=== PATIENT | male | born 1995 | race Caucasian/White ===

== ENCOUNTER → 2021-07-27 09:56 | Outpatient (CLI) | payer BC, SELFPAY | PROVIDERS: Visit Provider Nurse Practitioner | DX: Z20.822 Contact with and (suspected) exposure to COVID-19 (principal) | CPT/HCPCS: C9803; U0003; U0005 ==

== ENCOUNTER → 2021-12-27 13:51 | Outpatient (CLI) | payer BC, SELFPAY | PROVIDERS: Visit Provider Urology | DX: Z01.812 Encounter for preprocedural laboratory examination (principal); Z20.822 Contact with and (suspected) exposure to COVID-19; Z30.2 Encounter for sterilization | CPT/HCPCS: C9803; U0003; U0005 ==

== ENCOUNTER 2021-12-30 07:40 | Day surgery (SDC) | payer BC, SELFPAY ==
[2021-12-30 08:07] VITALS: BP 132/69; PULSE 68; RESP 17; TEMP 36.9; O2SAT 99; BMI 35.6
--- NOTE | 2021-12-30 08:52 | P.PN_ITS ---
[facility] Anesthesia Checklist - Structural Data Admitted From: Home Planned Operative Procedure/s: vasectomy Consent for Planned Operative Procedure(s) Verified: Yes - Airway Assessment C-Spine Mobility Assessed: Yes TMJ Mobility Assessed: Yes Dentition: Good Dentition - Neurological Assessment Level of Consciousness: Awake, Alert, Appropriate - Anesthesia Plan Anesthesia Risk discussed: Yes Anesthesia Plan: Verified ASA Class: I Anesthesia Type: MAC [facility] History I have reviewed the patient's past medical history: Yes Medical History: Denies:: Cancer, Diabetes Mellitus Type 1, Diabetes Mellitus Type 2, MRSA, Seizures *Have you ever received a pneumonia vaccine?: No *Have you received a flu vaccine this season?: No Anesthesia experience/problems:: none Other Surgeries: Yes: No Previous Surgery Amputation: No Fractures: No - *Social History Smoking Status: Never smoker Alcohol Intake: current Alcohol Intake Frequency:: holidays/special occasions only Substance Use Type: denies use *Occupational Status:: employed Housing: house Household Members: spouse, children *Travel in the last 8 weeks: None Family Hx:: Heart Attack, Cancer
[2021-12-30 09:58] VITALS: BP 145/95; PULSE 86; RESP 18; TEMP 36.8; O2SAT 96
[2021-12-30 10:08] VITALS: BP 150/92; PULSE 85; RESP 18; O2SAT 98
[2021-12-30 10:18] VITALS: BP 151/92; PULSE 81; RESP 18; O2SAT 98
[2021-12-30 10:27] VITALS: BP 140/93; PULSE 75; RESP 18; O2SAT 100
--- NOTE | 2021-12-30 11:59 | HMH.OPNOTE ---
Date of procedure: 12/30/21 Pre-op Diagnosis:: Sterilization Post-op Diagnosis:: Sterilization Procedure performed:: Vasectomy Surgeon:: Hansel Sung MD SALES TEAM MANAGER:: Other (meche) Anesthesia: MAC Estimated blood loss (mL): 0 Clinical Note:: 26-year-old white male previously seen for vasectomy consultation presents for the procedure today. Operative findings:: Normal scrotal and testicular examination. Both vasa are easily palpable. Operative note:: Patient taken to the operating room after informed consent was obtained. Monitored anesthesia care was administered and preoperative antibiotic was administered. He was prepped and draped in the standard surgical fashion. Scrotal and testicular examination were within normal limits. The left vas was identified and brought up to the midline raphae. Local anesthetic was placed under the skin in the midline raphae and around the left vas. Incision was then made in the midline raphae for about 2 cm and a tenaculum was used to grasp the left vas and it was brought up through the incision. The basal sheath was then incised and the vas proper was dissected from its surrounding adventitial and vascular tissue. 1 clip was placed distally and 2 clips proximally. A 1 cm segment was excised and the vasa lumens were cauterized. Hemostasis achieved and the left vas dropped back into the hemiscrotum. An identical procedure was performed on the right side. The right vas was brought up through the same midline incision. The vasal sheath incised and the vas proper dissected free from the surrounding tissue. 1 clip was placed distally and 2 proximally. 1 cm segment excised and the basal lumen was cauterized. Hemostasis achieved and the vas dropped back into the right hemiscrotum. A 3-0 chromic in a horizontal mattress fashion was placed in the skin. Compression dressing applied. Patient tolerated without complication. Condition: stable Disposition: same day Specimens:: Vas segments were removed but not sent to pathology Complications:: None
== END 2021-12-30 10:30 | disposition home or self-care (01) ==
LOC: OR 07:42
PROVIDERS: PCP Urology; Visit Provider Urology
PROC: (CPT 55250; principal; 2021-12-30 09:15)
DX: Z30.2 Encounter for sterilization (principal)
CPT/HCPCS: 55250; 96374

== ENCOUNTER 2022-01-04 13:11 | Emergency (ER) | payer BC, SELFPAY ==
[2022-01-04 13:28] VITALS: BP 160/79; PULSE 80; RESP 18; TEMP 36.9; O2SAT 98; BMI 35.6
--- NOTE | 2022-01-04 13:36 | HMH.EDGENADL ---
ED Disposition Clinical Impression: Oral mucosal lesion, Traumatic ulcer of oral mucosa Disposition: Home, Self-Care Condition on Discharge: Good Instructions: DI for Aphthous Ulcers (Canker Sores) Additional Instructions: You have been evaluated for mouth pain, lesions. You have been diagnosed with a posttraumatic ulcer to the posterior oropharynx. This is likely due to trauma from running, procedure. Please use Magic mouthwash for symptoms. Follow-up with your primary care doctor for symptom recheck. Return to the emergency department for any new or worsening symptoms, difficulty swallowing, difficulty breathing, fevers, other concerns. Referrals: Provider,Referral, MD [Primary Care Provider] - Time of Disposition: 14:40 - Critical Care Critical Care Time: No Attestation: On 01/04/22, the high probability of a clinically significant, sudden or life threatening deterioration of the following system(s) required my full and direct attention, intervention and personal management. The time I documented below is in addition to time spent performing reported procedures but includes the following listed in this critical care notation. Medical Decision Making - Medical Records Medical records reviewed: Yes: I reviewed the patient's medical records. - Everardo Inquiry Pt receiving controlled substance: No Vital Signs: 01/04/22 13:28 Temperature 98.5 F Temperature Source Oral Pulse Rate [Left Radial] 80 Respiratory Rate 18 Blood Pressure [Right Arm] 160/79 H Blood Pressure Mean [Right Arm] 106 02 Sat by Pulse Oximetry 98 Oxygen Delivery Method Room Air - Lab Data Lab Results 01/04/22 13:40: Group A Strep Rapid Negative Orders (Tests/Meds): ED MEDICATIONS Generic Name Dose Route Start Last Admin Trade Name Freq PRN Reason Stop Dose Admin Tetracycl/Hydrocort/Nystatin/Diphen 15 ml 01/04/22 17:00 01/04/22 14:07 Magic Mouthwash 240ml Bottle PO 02/03/22 16:59 15 ml QID ANAMARIA Administration Discontinued Medications Generic Name Dose Route Start Last Admin Trade Name Freq PRN Reason Stop Dose Admin Dexamethasone Sodium Phosphate 10 mg 01/04/22 13:38 01/04/22 14:07 Dexamethasone 4mg/Ml 5ml Mdv PO 01/04/22 13:39 10 mg ONCE ONE Administration ORDERS Category Date Time Status Strep Screen Confirmation Stat Micro 01/04/22 13:40 Received Medical Decision Narrative: In summary this is a previously healthy 26-year-old male presenting to the emergency department on postop day 5 from a vasectomy with sore throat, oral lesions. Patient clinically stable on arrival. Vital signs within normal limits. Physical exam suggests traumatic injury to the posterior oropharynx. Now with ulcerative like lesions. Will obtain rapid strep to assess for bacterial infection. Had aphthous ulcers in the past. Patient given oral dexamethasone. Given Magic mouthwash for symptoms. Counseled him on conservative management and symptom treatment. Recommended PCP follow-up. Given return precautions. Stable for discharge. General Adult HPI - General Chief complaint: PAIN Stated complaint: Post op, mouth sore Time Seen by Provider: 01/04/22 13:20 Mode of Arrival: Ambulatory Limitations: No Limitations Description of Symptoms (Recalled from ER Triage Doc. by RN): pt to ed c/o throat irritation. pt states he had a vasectomy on thursday in the OR. pt states he was suctioned in the OR d/t acid reflux. pt states since surgery his throat has been inflammed and sore. pt denies SOA. - History of Present Illness HPI narrative: 26-year-old male presenting to the emergency department with sore throat. Pain is located in the back of the throat, worse on the left side. Is described as sharp and burning. Pain is worse with swallowing. Pain started almost 1 week ago. He had a vasectomy on Thursday with Dr. Sung. Had anesthesia. He was told that he may have aspirated during the procedure and had to be suc
--- NOTE | 2022-01-04 13:44 | PC.NURSE ---
STREP SWAB SENT TO LAB
[2022-01-04 13:51] LABS: Strep Scrn Group A (Rapid) Negative (Negative)
[2022-01-04 15:13] VITALS: BP 141/72; PULSE 78; RESP 18; TEMP 36.9; O2SAT 99
== END 2022-01-04 15:14 | disposition home or self-care (01) ==
PROVIDERS: Emergency Provider Emergency Medicine
DX: K12.39 Other oral mucositis (ulcerative) (principal); R07.0 Pain in throat
CPT/HCPCS: 87430; 99283

== ENCOUNTER 2022-11-24 19:10 | Emergency (ER) | payer BC, SELFPAY ==
[2022-11-24 19:10] VITALS: BP 148/91; PULSE 73; RESP 18; TEMP 37.4; O2SAT 100; BMI 35.6
[2022-11-24 19:31] LABS: UTC Strep Screen (Rapid) Positive (Negative)
--- NOTE | 2022-11-24 19:31 | EXP.UTC ---
Discharge Plan Disposition Patient Disposition: Home, Self-Care Condition: Good Prescriptions Prescriptions: New azithromycin [Zithromax Z-Collins] 250 mg tablet See Rx Instructions .ROUTE .COMPLEX 5 Days Qty: 6 0RF Rx Instructions: For 250 mg dose pack: take 500 mg today (day 1), then 250 mg for 4 days (days 2-5) methylprednisolone [Medrol (Collins)] 4 mg tablets,dose pack See Rx Instructions .Route .COMPLEX 6 Days Qty: 21 0RF Rx Instructions: taper pack; Referrals Follow up/Referrals: Provider,Referral, MD [Primary Care Provider] - See instructions Activity Restrictions/Add. Instructions Additional Instructions/Restrictions: *Monitor Temp, Over the counter Motrin or Tylenol as directed/as needed Tylenol every 4 hours and Motrin every 6 hours (as long as your family doctor has told you that you can take it) for fever or pain. and straight to ER if unable to lower temp less than 101.0 after medication given *Warm salt water gargles may help to soothe the throat *Throat Lozenges? *Warm fluids like tea with honey may help to soothe the throat? *Sleep elevated *Humidifier/Vaporizer *If you did not take Penicillin shot or was unable to, start taking antibiotic immediately and make sure that you take it for the FULL length of time although you should start to feel better in 24-48 hours *change toothbrush and toothpaste 24-48 hours after starting to take antibiotics so you do not reinfect yourself Monitor Temp. Tylenol and/or Ibuprofen as needed. ER if fever is no less than 101 despite alternating Tylenol and Ibuprofen * Encourage fluids, water, Gatorade, powerade, pedialyte if infant/toddler/or child *Cold fluids, popsicles and ice cream may feel good on his throat Follow up IMMEDIATELY for new or worsening symptoms or no Noticeable improvement over the next 48-72 hours. 911 for difficulty breathing or swallowing Clinical Impressions Clinical Impression: Strep throat Instructions Patient Instructions: DI for Strep Throat, Strep Throat Discharge ED Provider: Nasra Willoughby [facility] [place] HPI General Stated complaint: sore throat Mode of Arrival: Ambulatory Source of Information: Patient Limitations: No Limitations Time Seen by Provider: 06/12/23 19:31 Description of Symptoms (Recalled from Triage Doc. by RN): Patient complains of sore throat and congestion since Thursday. HEENT Symptoms (Recalled from RN notes): Yes Resp Symptoms (Recalled from RN notes): No Skin Symptoms (Recalled from RN notes): No MS Symptoms (Recalled from RN notes): No Functional Status (Recalled from RN notes): wnl History of Present Illness Provider Complaint: Patient states that for the last couple of days he has been having sore throat and nasal congestion States that today his throat was hurting worse and felt like he was swallowing razor blades so this evening when he was still having pain he came in to get checked Related Data Previous Rx's Medication Instructions Recorded azithromycin 250 mg tablet See Rx Instructions PO .COMPLEX 5 11/24/22 (Zithromax Z-Collins) days #6 tabs methylprednisolone 4 mg tablets in See Rx Instructions .Route 11/24/22 a dose pack (Medrol (Collins)) .COMPLEX 6 days #21 tabs Allergies Allergy/AdvReac Type Severity Reaction Status Date / Time penicillin G Allergy Mild Verified 12/03/21 10:26 Worker's Comp Is this a Worker's Comp case?: No PFSH [facility] Disclaimer: The information contained in this section may have been updated after the patient was seen, as this information can be updated by other users. Social History Smoking Status: Never smoker alcohol intake: current substance use type: denies use current occupational status: employed Travel in the last 8 weeks: None household members: spouse and children housing: house ROS Obtained: Yes All systems reviewed & no additional complaints except as documented and Yes Systems reviewed as appropriate & no
[2022-11-24 19:40] VITALS: BP 148/91; PULSE 73; RESP 18; TEMP 37.4; O2SAT 100
== END 2022-11-24 19:41 | disposition home or self-care (01) ==
PROVIDERS: Emergency Provider Nurse Practitioner
DX: J02.0 Streptococcal pharyngitis (principal)
CPT/HCPCS: 87880; 99204; 99212; 99214; G0463